=== PATIENT | female | born 1985 | race Caucasian/White ===

== ENCOUNTER 2016-08-15 07:42 | Day surgery (SDC) | payer OTHER ==
[2016-08-14 14:58] VITALS: BMI 42.9
[2016-08-15] MEDS ORDERED: PROPOFOL 20 ML ONE ×2 (09:03)
[2016-08-15] MEDS ORDERED: LIDOCAINE HCL/PF 2% SDV 5ML VIAL ONE (09:03)
[2016-08-15 10:18] VITALS: TEMP 98.1
[2016-08-15 10:42] VITALS: PULSE 46
[2016-08-15 12:10] VITALS: BP 120/75
--- NOTE | 2016-08-16 11:36 | PATH ---
Surgical Pathology Report Patient Name: KRISTAL CROCKER [facility]. Rec. #: [id number] /Age/Gender: 1985 (Age: 31) / F Account: [id number] Location: U-ENDOSCOPY Taken: 08/15/2016 Received: 08/15/2016 Reported: 08/16/2016 Physicians: Randy Mead M.D. Specimen(s) Received A: BX PREPYLORIC ULCER B: BX ERYTHEMA BODY OF STOMACH Clinical History Bariatric clearance Prepyloric ulcer Final Diagnosis A. STOMACH, PREPYLORIC, BIOPSY: MILD TO MODERATE CHRONIC ACTIVE GASTRITIS. IMMUNOSTAIN FOR H. PYLORI IS POSITIVE (MODERATE NUMBERS OF ORGANISMS). B. STOMACH, ERYTHEMA BODY, BIOPSY: MILD CHRONIC ACTIVE GASTRITIS. IMMUNOSTAIN FOR H. PYLORI IS POSITIVE (MODERATE NUMBERS OF ORGANISMS). Electronically Signed Vicente Haley M.D. Gross Description A. Received in formalin, labeled "biopsy prepyloric ulcer" is a winters, irregular portion of soft tissue measuring 0.2 cm. in greatest dimension. The specimen is submitted in toto in one cassette. B. Received in formalin, labeled "biopsy erythema body of stomach" are 2 winters, irregular portions of soft tissue averaging 0.2 cm. in greatest dimension. The specimens are submitted in toto in one cassette. 08/15/201608/15/2016
== END 2016-08-15 11:20 | disposition home or self-care (01) ==
LOC: JASU-ENDO 07:42
PROVIDERS: ATTEND Internal Medicine Gastroenterology
PROC: 0DB78ZX Excision of Stomach, Pylorus, Via Natural or Artificial Opening Endoscopic, Diagnostic (ICD-10-PCS; 2016-08-15)
PROC: 0DB68ZX Excision of Stomach, Via Natural or Artificial Opening Endoscopic, Diagnostic (ICD-10-PCS; principal; 2016-08-15 09:30)
DX: Z01.818 Encounter for other preprocedural examination (principal); K25.9 Gastric ulcer, unspecified as acute or chronic, without hemorrhage or perforation; K31.89 Other diseases of stomach and duodenum; E66.01 Morbid (severe) obesity due to excess calories
CPT/HCPCS: 84703; 88305-TC; 88342-TC

== ENCOUNTER 2016-12-19 10:46 | Day surgery (SDC) | payer OTHER ==
[2016-12-18 12:49] VITALS: BMI 45.3
[2016-12-19] MEDS ORDERED: PROPOFOL 20 ML ONE ×2 (12:04)
[2016-12-19 12:45] VITALS: TEMP 97.5
[2016-12-19 13:22] VITALS: BP 126/85; PULSE 57
--- NOTE | 2016-12-20 12:13 | PATH ---
Surgical Pathology Report Patient Name: KRISTAL CROCKER [facility]. Rec. #: [id number] /Age/Gender: 1985 (Age: 31) / F Account: [id number] Location: [facility]-ENDOSCOPY Taken: 12/19/2016 Received: 12/19/2016 Reported: 12/20/2016 Physicians: Randy Mead M.D. Specimen(s) Received A: BX EROSION DISTAL ANTRUM B: BX ERYTHEMA BODY Clinical History Followup gastric ulcer Erosion antrum, erosive gastritis Final Diagnosis A. 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 IMMUNOSTAIN FOR H. PYLORI IS NEGATIVE FOR ORGANISMS. B. STOMACH, BODY, ERYTHEMA, BIOPSY: GASTRIC OXYNTIC MUCOSA WITH MODERATE CHRONIC GASTRITIS. IMMUNOSTAIN FOR H. PYLORI IS NEGATIVE FOR ORGANISMS. Electronically Signed Osmani Hernandez M.D. Gross Description A. Received in formalin, labeled "biopsy erosion distal antrum" are 2 winters, irregular portions of soft tissue measuring 0.2 and 0.4 cm in greatest dimension. The specimens are submitted in toto in one cassette. B. Received in formalin, labeled "biopsy erythema body" are 2 winters, irregular portions of soft tissue measuring 0.3 and 0.6 cm in greatest dimension. The specimens are submitted in toto in one cassette. 12/19/201612/19/2016
== END 2016-12-19 13:22 | disposition home or self-care (01) ==
LOC: JASU-ENDO 10:46
PROVIDERS: ATTEND Internal Medicine Gastroenterology
PROC: 0DB68ZX Excision of Stomach, Via Natural or Artificial Opening Endoscopic, Diagnostic (ICD-10-PCS; principal; 2016-12-19 11:00)
DX: Z01.818 Encounter for other preprocedural examination (principal); K25.9 Gastric ulcer, unspecified as acute or chronic, without hemorrhage or perforation
CPT/HCPCS: 84703; 88305-TC; 88342-TC